=== PATIENT | male | born 1970 | race Caucasian/White ===

== ENCOUNTER 2019-05-31 10:31 | Emergency (ER) | payer OTHER, MEDICAID ==
[~2019-05-31] VITALS: Ht 170.2 cm; Wt 77.1 kg
[2019-05-31 10:38] VITALS: BP 126/67
[2019-05-31] MEDS ORDERED: CLINDAMYCIN HC150 MG PO (11:01)
[2019-05-31] MEDS ORDERED: TYLENOL WITH CO1 TA1 PO (11:01)
[2019-05-31] MEDS ORDERED: PERIDEX15 ML SWISH&SPIT (11:04)
== END 2019-05-31 11:10 | disposition home or self-care (01) ==
LOC: M.ERS 10:31
DX: S02.5XXA Fracture of tooth (traumatic), initial encounter for closed fracture (principal); K02.9 Dental caries, unspecified; F17.210 Nicotine dependence, cigarettes, uncomplicated; Z88.0 Allergy status to penicillin; X58.XXXA Exposure to other specified factors, initial encounter; Y93.89 Activity, other specified; Y92.89 Other specified places as the place of occurrence of the external cause; Y99.8 Other external cause status

== ENCOUNTER 2019-08-15 12:17 | Emergency (ER) | payer OTHER, MEDICAID ==
[~2019-08-15] VITALS: Ht 170.2 cm; Wt 72.6 kg
[~2019-08-15 12:17] MED LIST: CLINDAMYCIN HC150 MG PO; PERIDEX15 ML SWISH&SPIT; TYLENOL WITH CO1 TA1 PO
[2019-08-15] MEDS ORDERED: ONDANSETRON HCL4 M2 PO (13:01)
[2019-08-15 13:11] VITALS: BP 138/87
== END 2019-08-15 13:12 | disposition home or self-care (01) ==
LOC: M.ERS 12:17
DX: B34.9 Viral infection, unspecified (principal); R11.2 Nausea with vomiting, unspecified; Z88.0 Allergy status to penicillin